=== PATIENT | female | born 1980 | race Caucasian/White ===

== ENCOUNTER 2017-06-18 21:09 | Emergency (ER) | payer SELFPAY ==
[~2017-06-18] VITALS: Ht 175.3 cm; Wt 90.0 kg
[2017-06-18] MEDS ORDERED: AUGMENTIN875 MG PO (23:10)
[2017-06-18 23:54] VITALS: BP 139/88
== END 2017-06-18 23:54 | disposition home or self-care (01) ==
LOC: EME 21:09
DX: J01.90 Acute sinusitis, unspecified (principal); F17.200 Nicotine dependence, unspecified, uncomplicated; Z88.2 Allergy status to sulfonamides; Z91.040 Latex allergy status
CPT/HCPCS: 99281; 99283